=== PATIENT | female | born 1995 | race Caucasian/White ===

== ENCOUNTER 2020-02-11 19:09 | Day surgery (SDC) | payer BC ==
[2020-02-11 20:10] VITALS: BMI 43.2
--- NOTE | 2020-02-11 20:33 | PDOC.LDHP ---
Labor and Delivery H&P Chief complaint: decreased movement, other (elevated BP at home) HPI: 24 y/o G1 at 37w6d, patient of Dr. Diaz, presents with elevated BP at home (mild range), swelling of feet, and decreased movement. She reports the baby has been moving, just not as big of movements. Has been taking BPs at home due to occasional elevated BPs for several months. Denies VB, LOF, PIH sx, or ctx. ROS neg for HEENT, cv, pulm, gi, gu, neuro, psych, skin, musculoskeletal or constitutional symptoms other than mentioned above. OB History Details: First Current complications: none Past Medical History: None Current medications: pre- vitamins Previous surgical history: none Allergies/Adverse Reactions: Allergies Allergy/AdvReac Type Severity Reaction Status Date / Time No Known Allergies Allergy Verified 02/11/20 20:07 Social history: none - Physical Exam Vital signs reviewed and normal: yes (all normal BPs) General: NAD, resting Lungs: nonlabored breathing Abdomen: gravid Extremeties: trace edema FHT: category 1 (150s, mod variability, + accels, no decels) Lillie contractions every: occasional - OB Labs Blood type: O RH: positive Antibody Screen: negative HIV: negative RPR: negative HEPSAg: negative 1 hour GCT: negative GBS: negative Rubella: immune - Assessment 24 y/o G1 at 37w6d with all normal BPs today. status reassuring with reactive NST. - Plan -: D/c home with precautions. Advised to keep all appointments. Next appointment tomorrow.
== END 2020-02-11 20:50 | disposition home or self-care (01) ==
LOC: L&D/OP 19:09
PROVIDERS: ATTEND Obstetrics & Gynecology
DX: O36.8130 Decreased fetal movements, third trimester, not applicable or unspecified (principal); O99.89 Other specified diseases and conditions complicating pregnancy, childbirth and the puerperium; R03.0 Elevated blood-pressure reading, without diagnosis of hypertension; M79.89 Other specified soft tissue disorders; Z3A.37 37 weeks gestation of pregnancy

== ENCOUNTER 2020-02-12 18:20 | Inpatient (IN) | payer BC, OTHER ==
[~2020-02-12 18:20] MED LIST: Bupivacaine 0.25% HCL 30 ML VIAL ONE; Bupivacaine HCl 0.5%/Epinephrine 1:200,000/PF 30 ml Vial ONE
[2020-02-12] MEDS ORDERED: hydrALAZINE 20 MG/ML VIAL SLOW IVP PRN (19:05)
[2020-02-12] MEDS ORDERED: Ibuprofen 800 MG TAB PO PRN (19:05)
[2020-02-12] MEDS ORDERED: HYDROcodone/Acetaminophen 5/325 mg Tablet PO PRN ×2 (19:05)
[2020-02-12] MEDS ORDERED: Butorphanol Tartrate 1 MG/ML VIAL SLOW IVP PRN (19:05)
[2020-02-12] MEDS ORDERED: Ondansetron PF 4 MG/2 ML Vial IVP PRN (19:05)
[2020-02-12] MEDS ORDERED: NS / Oxytocin 40 units/1000ml 1,000 ML IV PRN (19:05)
[2020-02-12] MEDS ORDERED: Lidocaine 1% (PF) 30 ML VIAL SC PRN (19:05)
[2020-02-12] MEDS ORDERED: Promethazine HCl 25 MG/ML VIAL IM PRN (19:05)
[2020-02-12] MEDS ORDERED: NS w/ Oxytocin 10 units 500 ML IV SCH ×2 (19:15)
[2020-02-12] MEDS ORDERED: Misoprostol 100 MCG TAB VAG SCH ×2 (19:15→20:00)
[2020-02-12 22:05] LABS: Hemoglobin 11.9 g/dL (12.0-16.0); Mean Corpuscular HGB CONC 33.3 g/dL (32.0-36.0); Mean Corpuscular Hemoglobin 28.1 pg (27.0-31.0); Mean Corpuscular Volume 84.6 fL (78.0-98.0); Mean Platelet Volume 9.9 fL (7.4-10.4); Platelet Count 213 thou/uL (130-400); RBC Distribution Width 13.2 % (11.5-14.5); Red Blood Cell (RBC) Count 4.23 mill/uL (4.20-5.40)
[2020-02-12 22:40] LABS: ALT (SGPT) 15 U/L (8-55); AST (SGOT) 15 U/L (5-34); Albumin 3.4 g/dL (3.5-5.0); Alkaline Phosphatase 112 U/L (40-110); Anion Gap 19 mmol/L (10-20); BUN (Urea Nitrogen) 6 mg/dL (7.0-18.7); Bilirubin, Total 0.4 mg/dL (0.2-1.2); Calc. Creatinine Clearance 0 mL/min (70-130); Calcium 9.2 mg/dL (7.8-10.44); Carbon Dioxide 18 mmol/L (22-29); Chloride 106 mmol/L (98-107); Estimated GFR-MDRD Greater than 90; Globulin 2.6 g/dL (2.4-3.5); Glucose 115 mg/dL (70-105); Potassium 3.7 mmol/L (3.5-5.1); Sodium 139 mmol/L (136-145)
[2020-02-12] MEDS: Lactated Ringer's 1,000 ML IV SCH (23:00)
[2020-02-13 00:18] LABS: HBSAg Index 0.18 S/CO (0-0.99); Hep B Surf Ag Non-Reactive S/CO (NonReactive)
[2020-02-13 02:45] VITALS: BMI 43.4
[2020-02-13] MEDS: Lactated Ringer's 1,000 ML IV SCH ×4 (04:34→18:19)
--- NOTE | 2020-02-13 08:21 | PDOC.LDPN ---
Labor & Delivery Progress Note - Subjective Subjective: comfortable - Objective Vital signs reviewed and normal: yes General: resting Dilation: 0 FHT: category 1 - Assessment (1) Gestational hypertension Code(s): O13.9 - GESTATIONAL HTN W/O SIGNIFICANT PROTEINURIA, UNSP TRIMESTER Current Visit: Yes Status: Acute (2) 38 weeks gestation of Code(s): Z3A.38 - 38 WEEKS GESTATION OF Current Visit: Yes Status: Acute Plan: continue plan of care -: Pt with delayed start to IOL, first dose cytotec approx 0300, 2nd dose recently placed w SVE 0cm. Plan for Cook Balloon placement at next exam if appropriate. Pt agrees with plan of care.
[2020-02-13 08:52] LABS: Syphilis Antibody Nonreactive (Nonreactive); Syphilis Antibody Index 0.02 S/CO (<1.00 Non-Reactive)
[2020-02-13] MEDS ORDERED: Fentanyl 4 mcg/Bup 0.1% Cadd 100 ML ONE ×2 (09:05→16:30)
[2020-02-13] MEDS ORDERED: diphenhydrAMINE 50 MG/ML VIAL IM PRN (10:21)
[2020-02-13] MEDS ORDERED: Lactated Ringer's 500 ML IV PRN (10:21)
[2020-02-13] MEDS ORDERED: Naloxone HCl 0.4 mg/ml Vial IVP PRN ×4 (10:21→20:57)
[2020-02-13] MEDS ORDERED: Ondansetron PF 4 MG/2 ML Vial IVP PRN ×3 (10:21→20:57)
[2020-02-13] MEDS ORDERED: EPHEDRINE 25 MG/5 ML SYRINGE SLOW IVP PRN (10:21)
[2020-02-13] MEDS ORDERED: Zolpidem Tartrate 5 MG TAB PO PRN (10:21)
[2020-02-13] MEDS ORDERED: diphenhydrAMINE 25 MG CAP PO PRN (10:21)
[2020-02-13] MEDS ORDERED: Naloxone HCl 0.4 mg/ml Vial IV PRN ×2 (10:21→20:57)
[2020-02-13] MEDS ORDERED: Promethazine HCl 25 MG/ML VIAL IM PRN ×4 (10:21→23:05)
[2020-02-13] MEDS ORDERED: Acetaminophen 325 MG TAB PO PRN ×2 (10:21→23:05)
[2020-02-13] MEDS ORDERED: diphenhydrAMINE 50 MG/ML VIAL IVP PRN ×3 (10:21→20:57)
[2020-02-13] MEDS ORDERED: Communication Order-Pharmacy FS SCH ×2 (10:30→21:00)
[2020-02-13] MEDS ORDERED: Fentanyl 4 mcg/Bupivacaine 0.1% Cassette 100 ML EPIDURAL SCH (10:30)
[2020-02-13] MEDS ORDERED: Communication Order-Pharmacy FS PRN (10:30)
[2020-02-13 13:17] LABS: SARS-CoV-2 MS2 Positive; SARS-CoV-2 N Gene Negative; SARS-CoV-2 S Gene Negative; SARS-CoV-2 by NAA Not Detected (NotDetected); SARS-CoV-2 orf1ab Negative
--- NOTE | 2020-02-13 16:35 | PDOC.LDPN ---
Labor & Delivery Progress Note - Subjective Subjective: comfortable - Objective Vital signs reviewed and normal: yes Dilation: 4-5 Effacement: 50% Station: -3 FHT: variable decelerations - Assessment (1) Gestational hypertension Code(s): O13.9 - GESTATIONAL HTN W/O SIGNIFICANT PROTEINURIA, UNSP TRIMESTER Current Visit: Yes Status: Acute (2) 38 weeks gestation of Code(s): Z3A.38 - 38 WEEKS GESTATION OF Current Visit: Yes Status: Acute -: Too high for AROM, will start pitocin and plan for AROM later.
--- NOTE | 2020-02-13 16:40 | PDOC.LDPN ---
Labor & Delivery Progress Note - Subjective Subjective: painful contractions - Objective Vital signs reviewed and normal: yes (mild range BP) General: breathing through contractions Dilation: 4-5 Effacement: 50% Station: -2 FHT: category 2, variable decelerations (after AROM w [id number] variability) IUPC placed: yes FSE placed: yes - Assessment (1) Gestational hypertension Code(s): O13.9 - GESTATIONAL HTN W/O SIGNIFICANT PROTEINURIA, UNSP TRIMESTER Current Visit: Yes Status: Acute (2) 38 weeks gestation of Code(s): Z3A.38 - 38 WEEKS GESTATION OF Current Visit: Yes Status: Acute Plan: other -: Pitocin @ 2mu/min turned off (2nd time to turn off) w MVUs adequate w IUPC placed and FSE placed. Discussed indications for CS if no cervical change noted next check or if Cat 2 strip not amenable to resuscitative efforts.
[2020-02-13] MEDS ORDERED: Ketorolac Tromethamine 30 MG/ML VIAL ONE ×2 (18:22→19:39)
[2020-02-13] MEDS ORDERED: PHENYLEPHRINE-NS 100 MCG/ML 10 ML SYRINGE ONE ×2 (18:22→19:39)
[2020-02-13] MEDS ORDERED: Dexamethasone 4 mg/ml Vial ONE ×2 (18:22→19:39)
[2020-02-13] MEDS ORDERED: Ondansetron PF 4 MG/2 ML Vial ONE ×2 (18:22→19:39)
[2020-02-13] MEDS ORDERED: Fentanyl 100 MCG/2 ML VIAL ONE ×2 (18:22→19:38)
[2020-02-13] MEDS ORDERED: Oxytocin 10 UNITS/ML VIAL ONE ×3 (18:22→19:39)
[2020-02-13] MEDS ORDERED: Bicitra 30 ML UDCUP ONE (18:25)
[2020-02-13] MEDS ORDERED: Bicitra 30 ML UDCUP PO SCH (18:45)
[2020-02-13] MEDS ORDERED: Azithromycin 500 MG in Sodium Chloride 0.9% 250 ML 250 ML IVPB SCH (18:45)
[2020-02-13] MEDS ORDERED: CEFAZOLIN 2 GM in Premix Bag 1 BAG IVPB SCH (18:45)
[2020-02-13] MEDS ORDERED: Lidocaine 2% 10 ML INJ ONE (19:01)
[2020-02-13] MEDS ORDERED: Bupivacaine/Epinephrine 0.5% 10 ML VIAL ONE (19:01)
[2020-02-13] MEDS ORDERED: ePHEDrine 50 MG/ML VIAL ONE (19:39)
--- NOTE | 2020-02-13 19:54 | PDOC.LDPN ---
Labor & Delivery Progress Note - Subjective Subjective: comfortable - Objective Vital signs reviewed and normal: yes General: breathing through contractions - Assessment (1) Gestational hypertension Code(s): O13.9 - GESTATIONAL HTN W/O SIGNIFICANT PROTEINURIA, UNSP TRIMESTER Current Visit: Yes Status: Acute (2) 38 weeks gestation of Code(s): Z3A.38 - 38 WEEKS GESTATION OF Current Visit: Yes Status: Acute Plan: other -: CS called for [facility] at approx 1730, CS bumped by more urgent and more unreassuring status. Presented for CS @ 1930 for CS after first case completed. Currently waiting to start case -> delayed waiting for housekeeping services to start STAT clean OR.
[2020-02-13] MEDS ORDERED: Midazolam HCl 2 mg/2 ml Vial ONE (20:20)
[2020-02-13] MEDS ORDERED: Carboprost 250 MCG/ML AMP ONE (20:26)
[2020-02-13] MEDS ORDERED: Ondansetron HCl/PF 4 MG/2 ML Vial IVP PRN (20:57)
[2020-02-13] MEDS ORDERED: Ketorolac Tromethamine 30 MG/ML VIAL IVP PRN (20:57)
[2020-02-13] MEDS ORDERED: Promethazine HCl 25 MG SUPP PR PRN (20:57)
[2020-02-13] MEDS ORDERED: Meperidine HCl/PF 25 MG/ML VIAL SLOW IVP PRN (20:57)
[2020-02-13] MEDS ORDERED: HYDROmorphone 2 MG/ML VIAL SLOW IVP PRN (20:57)
[2020-02-13] MEDS ORDERED: L&D-Morphine 4 MG/ML VIAL SLOW IVP PRN (20:57)
[2020-02-13] MEDS ORDERED: HYDROcodone/Acetaminophen 5/325 mg Tablet PO PRN ×2 (23:05)
[2020-02-13] MEDS ORDERED: Simethicone Chewable 80 MG TAB PO PRN (23:05)
[2020-02-13] MEDS ORDERED: NS / Oxytocin 40 units/1000ml 1,000 ML IV SCH (23:05)
[2020-02-13] MEDS ORDERED: Bisacodyl 10 MG SUPP PR PRN (23:05)
[2020-02-13] MEDS ORDERED: Lanolin Ointment 7 GM TUBE TOP PRN (23:05)
[2020-02-13] MEDS ORDERED: hydrALAZINE 20 MG/ML VIAL SLOW IVP PRN (23:05)
[2020-02-14] MEDS: Ondansetron PF 4 MG/2 ML Vial IVP PRN ×2 (01:43→06:31)
[2020-02-14] MEDS: Lactated Ringer's 1,000 ML IV SCH (01:55)
[2020-02-14] MEDS: Docusate Calcium (SURFAK) 240 MG CAP PO SCH ×3 (02:05→21:44)
[2020-02-14] MEDS: Ferrous Sulfate 325 MG TAB PO SCH ×3 (02:05→21:44)
--- NOTE | 2020-02-14 02:20 | OP ---
DATE OF PROCEDURE: 02/13/2020 PREOPERATIVE DIAGNOSES: 1. Thirty-eight weeks with gestational hypertension, induction of labor. 2. Non-reassuring heart tones and failure to progress past 5 cm. PROCEDURE PERFORMED: Primary low-transverse section. CORRECTIONAL COUNSELOR/CASE MANAGER: Mar Dickinson MD COMPLICATIONS: None. ESTIMATED BLOOD LOSS: 600 mL. QBL: Pending at the time of dictation. Low-transverse hysterotomy without extension. Uterine fundus firm after delivery of and placenta and with Pitocin and Hemabate x1. Surgical site hemostatic. PROCEDURE IN DETAIL: The patient was taken back to the OR with IV fluids running. Her Santoyo catheter and epidural that were previously placed. Once the patient was in the OR, she was placed in dorsal supine position with a left lateral tilt. The abdomen was prepped and draped in normal fashion for section, and the surgeons were gowned and gloved. After the patient was draped and anesthesia was tested, it was found to be adequate. A Pfannenstiel skin incision was made with the skin. The skin incision was extended down through the subcutaneous tissue to the fascia. Once the fascia was reached, it was incised in the midline and extended superolaterally using curved West scissors. Nedra clamps were placed at the superior border of the fascia, which was sharply and bluntly dissected off the rectus abdominis muscles. In similar fashion, Nedra clamps were placed at the inferior border of the fascia, which was dissected down towards the pubic symphysis. The rectus muscles and peritoneum were stretched laterally. An Alonzo O retractor was placed into the peritoneal cavity for retraction, visualization, and protection of the wound. Bladder flap was created, and the bladder flap was dissected away from the planned hysterotomy site. A low-transverse hysterotomy was made with a scalpel. A Rod maneuver was used to extend the hysterotomy. An Allis clamp was used with clear fluid noted at amniotomy. The infant's head was delivered without difficulty from an asynclitic life through the hysterotomy. The nose and mouth were suctioned. The cord was doubly clamped and cut. The infant was handed off to special care nurse in attendance. The was noted to have vigorous cry immediately at . Cord blood was collected. The placenta was delivered. Uterus was exteriorized, massaged to firm and cleared of clot and debris. Uterus was returned to the abdominal cavity. The uterine fundus was noted to be atonic, and Hemabate was ordered. The hysterotomy was inspected with no extension noted. The hysterotomy was closed in a running locked fashion and closed into two layers using Monocryl suture. After the second layer of the hysterotomy was completed, the hysterotomy was irrigated and dried. The fundus was then palpated firm. There were no areas of bleeding noted. A layer of Seprafilm was placed over the hysterotomy in lower uterine segment. The Alonzo O retractor was removed prior to that. The peritoneum and rectus muscle were inspected. No areas of bleeding were noted. The fascia was inspected with no bleeding noted. The fascia was then reapproximated from corner to corner and tied together in the midline using PDS suture. Subcutaneous tissue was copiously irrigated and dry. Any small areas of bleeding were controlled with Bovie cauterization. Plain gut suture was used to reapproximate the subcutaneous tissue, and the subcuticular layer was reapproximated with Monocryl suture. After the subcuticular layer was closed, a thin layer of Dermabond was placed over the surgical wound. The uterine fundus was palpated firm. The patient tolerated the procedure well. There were no complications. Counts were correct. Job ID: [id number]
--- NOTE | 2020-02-14 05:48 | OP ---
DATE OF PROCEDURE: 02/13/2020 ADDENDUM: I was present and scrubbed to assist the uncomplicated primary low-transverse section with Dr. González Diaz. Please see her note for full details. Job ID: [id number]
[2020-02-14 06:44] LABS: Hemoglobin 10.8 g/dL (12.0-16.0); Mean Corpuscular HGB CONC 33.9 g/dL (32.0-36.0); Mean Corpuscular Hemoglobin 28.4 pg (27.0-31.0); Mean Corpuscular Volume 83.7 fL (78.0-98.0); Mean Platelet Volume 10.3 fL (7.4-10.4); Platelet Count 199 thou/uL (130-400)
--- NOTE | 2020-02-14 08:14 | PDOC.PP ---
Post Progress Note Post Day #: 1 Subjective: doing well, mild nausea overnight PO intake tolerated: yes Flatus: yes Ambulation: yes Vital Signs (12 hours) Temp Pulse Resp BP Pulse Ox 02/14/20 04:10 97.7 F 77 18 128/77 96 02/14/20 00:41 98.6 F 70 18 138/83 96 02/13/20 23:20 98.2 F 70 20 120/59 L 97 Weight Weight 253 lb - Physical Examination General: NAD Respiratory: non-labored breathing Fundus firm & at: below umb Psychiatric: A&Ox3, normal affect Result Diagrams: 02/14/20 05:55 02/12/20 21:54 Additional Labs: Post Labs Hep Bs Antigen Non-Reactive S/CO (NonReactive) 02/12/20 21:54 Blood Type O POSITIVE 02/12/20 22:20 (1) Gestational hypertension Code(s): O13.9 - GESTATIONAL HTN W/O SIGNIFICANT PROTEINURIA, UNSP TRIMESTER Status: Acute (2) 38 weeks gestation of Code(s): Z3A.38 - 38 WEEKS GESTATION OF Status: Acute (3) delivery delivered Code(s): O82 - ENCOUNTER FOR DELIVERY WITHOUT INDICATION Status: Acute - Assessment/Plan POD1 doing well, slowly advance diet reviewed, pain med use reviewed.
[2020-02-14] MEDS ORDERED: Adacel (T-DAP) 0.5 ML SYRINGE IM ONE (09:00)
[2020-02-14] MEDS: Prenatal Vitamin 1 TAB PO SCH (09:23)
[2020-02-14] MEDS: Ibuprofen 800 MG TAB PO SCH ×2 (14:16→21:44)
[2020-02-15] MEDS: Ibuprofen 800 MG TAB PO SCH ×3 (06:34→20:57)
[2020-02-15] MEDS: Ferrous Sulfate 325 MG TAB PO SCH (08:17)
[2020-02-15] MEDS: Docusate Calcium (SURFAK) 240 MG CAP PO SCH (08:51)
[2020-02-15] MEDS: Prenatal Vitamin 1 TAB PO SCH (08:51)
--- NOTE | 2020-02-15 09:34 | PDOC.PP ---
Post Progress Note Post Day #: 2 Subjective: pain controlled w po meds, tolerating diet, no CS concerns PO intake tolerated: yes Flatus: yes Ambulation: yes Vital Signs (12 hours) Temp Pulse Resp BP Pulse Ox 02/15/20 07:54 98.1 F 71 20 106/57 L 97 02/15/20 00:07 98.3 F 100 18 132/74 99 Weight Weight 253 lb - Physical Examination General: NAD Respiratory: non-labored breathing Abdominal: no distention Skin: CS incision dry & intact Neurological: no gross focal deficits Psychiatric: A&Ox3, normal affect Result Diagrams: 02/14/20 05:55 02/12/20 21:54 Additional Labs: Post Labs Hep Bs Antigen Non-Reactive S/CO (NonReactive) 02/12/20 21:54 Blood Type O POSITIVE 02/12/20 22:20 (1) Gestational hypertension Code(s): O13.9 - GESTATIONAL HTN W/O SIGNIFICANT PROTEINURIA, UNSP TRIMESTER Status: Acute (2) 38 weeks gestation of Code(s): Z3A.38 - 38 WEEKS GESTATION OF Status: Acute (3) delivery delivered Code(s): O82 - ENCOUNTER FOR DELIVERY WITHOUT INDICATION Status: Acute - Assessment/Plan POD2 sp CS for NRFHT @ 5cm. Possible DC this afternoon vs. tomorrow, pending dispo of baby.
[2020-02-15 18:42] VITALS: BP 129/80; TEMP 98.4
== END 2020-02-15 21:15 | disposition home or self-care (01) | DRG 788 ==
LOC: L&D 18:20 → 3SW 02-13 23:17
PROVIDERS: ADMIT Obstetrics & Gynecology; ATTEND Obstetrics & Gynecology
PROC: 10D00Z1 Extraction of Products of Conception, Low, Open Approach (ICD-10-PCS; principal; 2020-02-13)
DX: O13.4 Gestational [pregnancy-induced] hypertension without significant proteinuria, complicating childbirth (principal); Z20.828 Contact with and (suspected) exposure to other viral communicable diseases; Z3A.38 38 weeks gestation of pregnancy; Z37.0 Single live birth; O76 Abnormality in fetal heart rate and rhythm complicating labor and delivery; O62.2 Other uterine inertia
CPT/HCPCS: 36415; 51702; 80053; 85027; 86780; 86850; 86900; 86901; 87340; 87635; 99282; C1726; J0690; J1100; J1885; J2250; J2270; J2405; J2590; J3010; J3490; S0020; U0003

== ENCOUNTER 2020-04-07 11:45 | Emergency (ER) | payer BC ==
[2020-04-07 17:01] LABS: SARS-CoV-2 MS2 Positive; SARS-CoV-2 N Gene Positive; SARS-CoV-2 S Gene Positive; SARS-CoV-2 by NAA DETECTED (NotDetected); SARS-CoV-2 orf1ab Positive
== END 2020-04-07 12:50 | disposition home or self-care (01) ==
LOC: ERS 11:45
DX: U07.1 COVID-19 (principal); Z87.891 Personal history of nicotine dependence
CPT/HCPCS: 87635; 99283; U0003